=== PATIENT | male | born 1980 | race Hispanic/Latino ===

== ENCOUNTER 2018-07-04 18:39 | Emergency (ER) | payer SELFPAY ==
[~2018-07-04 18:39] MED LIST: Iopamidol 370 76% 100 ML VIAL ONE
[2018-07-04 19:01] LABS: Hemoglobin 15.4 g/dL (14.0-18.0); Mean Corpuscular HGB CONC 33.7 g/dL (32.0-36.0); Mean Corpuscular Hemoglobin 30.1 pg (27.0-31.0); Mean Corpuscular Volume 89.3 fL (78.0-98.0); Mean Platelet Volume 7.9 fL (7.4-10.4); Platelet Count 261 thou/uL (130-400); RBC Distribution Width 11.5 % (11.5-14.5); Red Blood Cell (RBC) Count 5.13 mill/uL (4.70-6.10); White Blood Cell (WBC) Count 23.6 thou/uL (4.8-10.8)
[2018-07-04 19:23] LABS: ALT (SGPT) 24 U/L (8-55); AST (SGOT) 29 U/L (5-34); Albumin 4.9 g/dL (3.5-5.0); Alcohol 32 mg/dL (Less than 10); Alkaline Phosphatase 58 U/L (40-150); Anion Gap 14 mmol/L (10-20); BUN (Urea Nitrogen) 19 mg/dL (8.9-20.6); Bilirubin, Total 1.2 mg/dL (0.2-1.2); Calc. Creatinine Clearance 0 mL/min (70-130); Calcium 10.1 mg/dL (7.8-10.44); Carbon Dioxide 23 mmol/L (22-29); Chloride 102 mmol/L (98-107); Estimated GFR-MDRD 77; Globulin 3.7 g/dL (2.4-3.5); Glucose 103 mg/dL (70-105); Lipase 13 U/L (8-78); Potassium 3.7 mmol/L (3.5-5.1); Protein, Total 8.6 g/dL (6.0-8.3); Sodium 135 mmol/L (136-145)
[2018-07-04 19:28] LABS: Band 7 % (5-11); Lymphocytes 4 % (21-51); MDiff Complete? YES; Monocytes 3 % (0-10); Neutrophil 86 % (42-75); PLT Morphology Comment Appears Adequate
--- NOTE | 2018-07-04 19:55 | CT ---
CT BRAIN WITHOUT CONTRAST: 07/04/18 INDICATION: Level II trauma. Fall from roof hitting head. COMPARISON: None. FINDINGS/IMPRESSION: No acute infarct, hemorrhage or hydrocephalus is present. No midline shift is present. Skull and extr acranial soft tissues appear within normal limits. POS: [facility]
--- NOTE | 2018-07-04 19:57 | CT ---
CT CERVICAL SPINE 07/04/18 INDICATION: Level II trauma after fall from roof. COMPARISON: None. FINDINGS: No acute fracture or subluxation is evident. Osseous central canal is preserved. Prevertebral soft ti ssues are normal appearing. Craniocervical junction is normal appearing. Lung apices are clear. IMPRESSION: No acute osseous abnormality. POS: [facility]
--- NOTE | 2018-07-04 20:21 | RAD ---
THREE VIEWS RIGHT FOOT: 07/04/18 HISTORY: Patient fell off roof landing on concrete. Right foot injury after fall. FINDINGS: The Lisfranc joint is normally aligned. No fracture or dislocation is seen involving the right foot. Sclerotic density in the middle phalanx right small toe is likely related to a small bone island. IMPRESSION: No acute osseous abnormality right foot. POS: [facility]
--- NOTE | 2018-07-04 20:37 | CT ---
CT OF CHEST WITH IV CONTRAST CT OF ABDOMEN AND PELVIS WITH IV CONTRAST 07/04/18 INDICATION: History of fall from a roof of a mobile home hitting head landing on left arm. FINDINGS: No acute contusion, pleural effusion, pneumothorax is seen involving the lungs. There is a 4 mm pulm onary nodule in the right middle lobe. The heart and great vessels appear within normal limits. No definite solid organ injury is evident. No definite free fluid or free air is noted. The bladder, rectum, and perirectal soft tissues are unremarkable appearing. No acute osseous abnormality is grossly evident. IMPRESSION: No definite acute injury demonstrated. Findings concerning the trauma pack were called to Dr. Mendez at 7:20 p.m. on 07/04/18. Code CR POS: [id number]
[2018-07-04 20:38] LABS: Bilirubin Negative (Negative); Blood, Urine Negative (Negative); Clarity CLEAR (Clear); Glucose, Urine (Dipstick) Negative (Negative); Leukocyte Negative (Negative); Nitrite Negative (Negative); Protein, Urine (Dipstick) Negative (Neg-Trace); Specific Gravity, Urine 1.045 (1.002-1.036); Urobilinogen 0.2 mg/dL (0.2-1.0); pH, Urine 5.5 (5.0-9.0)
--- NOTE | 2018-07-04 20:44 | RAD ---
THREE VIEWS RIGHT WRIST: 07/04/18 HISTORY: Patient fell off roof and landed on concrete. Right arm pain. Trauma. FINDINGS: On the oblique view there is some lucency within the waist of the scaphoid bone. This is probably rel ated to the trabecular pattern and is no present on the additional views of the wrist. No obvious fra cture is seen, and there is no evidence of a dislocation. No other osseous abnormality. IMPRESSION: No obvious acute fracture is seen involving the right wrist. However, if there is concern for fractur e of the navicular bone, followup views of the wrist are recommended in 4 to 7 days to exclude an occ ult fracture after conservative management. POS: [facility]
== END 2018-07-04 21:03 | disposition home or self-care (01) ==
LOC: ERS 18:39
DX: S00.83XA Contusion of other part of head, initial encounter (principal); M25.531 Pain in right wrist; M79.602 Pain in left arm; F17.210 Nicotine dependence, cigarettes, uncomplicated; Z71.6 Tobacco abuse counseling; W13.2XXA Fall from, out of or through roof, initial encounter
CPT/HCPCS: 36415; 70450; 71260; 72125; 74177; 80053; 80307; 81003; 83690; 85025; 96360